=== PATIENT | male | born 2000 | race Caucasian/White ===

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

== ENCOUNTER 2019-08-20 18:27 | Emergency (ER) | payer OTHER ==
[~2019-08-20] VITALS: Ht 188 cm; Wt 126.6 kg
[2019-08-20 20:04] VITALS: BP 115/71
== END 2019-08-20 20:04 | disposition home or self-care (01) ==
LOC: ED 18:27
DX: J06.9 Acute upper respiratory infection, unspecified (principal); J45.909 Unspecified asthma, uncomplicated; R51 Headache

== ENCOUNTER 2019-12-29 01:20 | Emergency (ER) | payer OTHER ==
[~2019-12-29] VITALS: Ht 188 cm; Wt 125.3 kg
[2019-12-29 01:27] VITALS: Ht 188 cm; Wt 125.3 kg
[2019-12-29 02:23] VITALS: BP 126/67
== END 2019-12-29 02:23 | disposition home or self-care (01) ==
LOC: ED 01:20
DX: R07.89 Other chest pain (principal); J45.909 Unspecified asthma, uncomplicated; Z20.828 Contact with and (suspected) exposure to other viral communicable diseases
CPT/HCPCS: Q0092

== ENCOUNTER 2020-03-08 23:16 | Emergency (ER) | payer OTHER ==
[~2020-03-08] VITALS: Ht 188 cm; Wt 124.7 kg
[2020-03-08 23:26] VITALS: Ht 188 cm; Wt 124.7 kg
[2020-03-08 23:54] VITALS: BP 142/70
== END 2020-03-08 23:54 | disposition home or self-care (01) ==
LOC: ED 23:16
DX: L03.116 Cellulitis of left lower limb (principal)